=== PATIENT | female | born 2000 ===

== ENCOUNTER 2025-05-17 14:55 | Inpatient (IN) | payer OTHER ==
[2025-05-17] VITALS (23 sets, daily range): BP systolic 82–115; BP diastolic 46–82
[~2025-05-17] VITALS: Ht 162.6 cm; Wt 89.4 kg
[~2025-05-17 14:55] MED LIST: Ketamine HCl 100 MG / ML 5ML Vial IV ONE; Midazolam HCl 1MG / ML 2ML Vial IV ONE; SuccINYLCHOLINE Chloride 100 MG/5 ML 5MLSYR IV ONE
[2025-05-17] MEDS ORDERED: Albuterol 2.5 MG/3 ML VIAL ONE (15:16)
[2025-05-17] MEDS ORDERED: Albuterol 2.5 MG/3 ML VIAL INH SCH (15:20)
[2025-05-17 15:27] LABS: BASOPHILS ABSOLUTE AUTO 0.04 K/mm3 (0.00-0.23); BASOPHILS PERCENT AUTO 0 % (0-2); EOSINOPHILS ABSOLUTE AUTO 0.08 K/mm3 (0.00-0.68); EOSINOPHILS PERCENT AUTO 1 % (0-6); Hematocrit 41.6 % (33.0-51.0); Hemoglobin 13.6 g/dL (11.5-16.0); IMMATURE GRAN ABSOLUTE AUTO 0.09 K/mm3 (0.00-0.10); IMMATURE GRAN PERCENT AUTO 1 % (0-1); LYMPHOCYTES ABSOLUTE AUTO 3.80 K/mm3 (0.84-5.20); LYMPHOCYTES PERCENT AUTO 32 % (21-46); MONOCYTES ABSOLUTE AUTO 0.68 K/mm3 (0.16-1.47); MONOCYTES PERCENT AUTO 6 % (4-13); Mean Corpuscular HGB Conc 32.7 g/dL (31.5-36.5); Mean Corpuscular Volume 95 fL (80-100); NEUTROPHILS ABSOLUTE AUTO 7.16 K/mm3 (1.96-9.15); NEUTROPHILS PERCENT AUTO 60 % (41-73); NRBC ABSOLUTE 0.00 K/mm3 (0.00-0.02); NRBC Auto 0.0 /100 WBC (0.0-0.2); Platelet Count 407 K/mm3 (150-400); RDW Coefficient Variation 13.0 % (11.7-14.2); RDW Standard Deviation 45.0 fL (35.1-46.3)
[2025-05-17] MEDS ORDERED: Piperacillin/Tazobactam Sod 4.5 GM in NS 100 ML IV ONE (15:30)
[2025-05-17] MEDS ORDERED: NS 1,000 ML IV ONE (15:43)
[2025-05-17 15:49] LABS: Source, Urine Foley catheter
[2025-05-17] MEDS ORDERED: Midazolam HCl 1MG / ML 2ML Vial IV ONE (15:50)
[2025-05-17] MEDS ORDERED: Midazolam HCL 50 MG in NS 40 ML IV PRN (15:55)
[2025-05-17 16:00] LABS: pH Blood Arterial 7.26 (7.35-7.45)
[2025-05-17 16:04] LABS: Bilirubin, Urine Neg (Neg); Color, Urine Yellow (P-Yellow); Glucose Qualitative, Urine Neg (Neg); Ketones, Urine Neg (Neg); Leukocyte Esterase, Urine Neg (Neg); Protein, Urine 3+ (Neg); Specific Gravity, Urine 1.010 (1.003-1.022); Urobilinogen, Urine NORM (Normal)
[2025-05-17] MEDS ORDERED: Calcium Gluconate 10% 100 MG/ML INJ IV ONE (16:05)
[2025-05-17] MEDS ORDERED: Insulin Regular 100 Unit/ML 1ML Dose IV ONE (16:05)
[2025-05-17] MEDS ORDERED: Sodium Bicarb 8.4% 50 mEq Syringe IV ONE (16:05)
[2025-05-17 16:09] LABS: Alanine Aminotransfer (ALT/SGP 40.0 U/L (12-78); Albumin, Blood 3.3 g/dL (3.4-5.0); Albumin/Globulin Ratio 0.8 (0.8-1.8); Anion Gap 19.0 mmol/L (3-11); Bilirubin, Total 0.3 mg/dL (0.1-1.0); Blood Urea Nitrogen 4.0 mg/dL (8-24); CO2, Blood 18.0 mmol/L (21-32); Calcium, Blood 9.0 mg/dL (8.5-10.1); Chloride, Blood 102.0 mmol/L (98-108); Creatinine, Blood 0.75 mg/dL (0.40-1.00); Globulin, Blood 4.3 g/dL (2.2-4.0); Glucose, Blood 181.0 mg/dL (70-99); Potassium, Blood 5.7 mmol/L (3.5-5.5); Sodium, Blood 133.0 mmol/L (136-145); Total Protein, Blood 7.6 g/dL (6.4-8.2)
[2025-05-17] MEDS ORDERED: Sodium Bicarb 8.4% 1 MEQ/ML 50 ML Vial IV ONE (16:10)
[2025-05-17 16:19] LABS: U Amphetamine Screen Not Detected
[2025-05-17 16:20] LABS: U Barbituate Screen Not Detected; U Benzodiazapine Screen Not Detected; U Buprenorphine Screen Not Detected; U Cannabinoids Screen Not Detected; U Cocaine Screen Not Detected; U Methadone Screen Not Detected; U Methamphetamine Screen Not Detected; U Opiates Screen Not Detected; U Oxycodone Screen Not Detected; U Phencyclidine Screen Not Detected
[2025-05-17 16:22] LABS: Aspartate Aminotrans (AST/SGOT 68.0 U/L (12-37)
[2025-05-17] MEDS ORDERED: FentaNYL Citrate 50 MCG/ML 2 ML Injection ONE (16:42)
[2025-05-17] MEDS ORDERED: FentaNYL Citrate 50 MCG/ML 2 ML Injection IV PRN (17:15)
[2025-05-17 17:35] LABS: Magnesium, Blood 1.9 mg/dL (1.6-2.4); Phosphorus, Blood 5.7 mg/dL (2.5-4.9)
--- NOTE | 2025-05-17 18:36 | NUR ---
PT ADMITTED TO ICU 13 FROM ER. INTUBATED AND SEDATED WITH PROPOFOL AND VERSED. PT ROUSES EASILY WITH ANY CARE. FOLLOWS COMMANDS AND RESPONDS TO MOMS VOICE THAT IS AT BEDSIDE. VENT SETTINGS AC 18, TV 400, PEEP8, FIO2 50%. OG TUBE TO LIS, PT HAD VOMITTED AT SOME POINT. HAS BILAT 20G IV'S IN SHOULDERS AND I/O IN R SHOULDER. MOM STATES PT HAS AUTISM WITH VERY HIGH LEVEL OF FUNCTIONING, SHE DOES UNDERSTAND MEDICAL SITUATIONS. MOM WILL STAY WITH PT TONIGHT.
[2025-05-17] MEDS ORDERED: FentaNYL Citrate 50 MCG/ML 2 ML Injection IV ONE (19:20)
--- NOTE | 2025-05-17 19:40 | NUR ---
PROCEDURE NOTE: 1920 STARTED BRONCHSCOPY ROCEDURE WITH DR VALDES. 1928 50MG ROCURONIUM ADMINISTERED. 1937 PROCEDURE COMPLETE.
[2025-05-17] MEDS ORDERED: Magnesium Sulf 2 GM/Water 50ML 50 ML IV STA (20:08)
[2025-05-17 20:29] LABS: Anion Gap 8.0 mmol/L (3-11); Blood Urea Nitrogen 7.0 mg/dL (8-24); CO2, Blood 26.0 mmol/L (21-32); Calcium, Blood 8.3 mg/dL (8.5-10.1); Chloride, Blood 108.0 mmol/L (98-108); Creatinine, Blood 0.78 mg/dL (0.40-1.00); Glucose, Blood 118.0 mg/dL (70-99); Potassium, Blood 4.0 mmol/L (3.5-5.5); Sodium, Blood 138.0 mmol/L (136-145)
[2025-05-17] MEDS ORDERED: Rocuronium Bromide 10 MG/ML 5ML Injection IV ONE (21:49)
[2025-05-17 21:52] LABS: Acinetobacter baumannii DNA Not Detected copy/mL (NOT DETECT); Chlamydia pneumonia Not Detected (NOT DETECT); Enterobacter cloacae DNA Not Detected copy/mL (NOT DETECT); Escherichia coli DNA Not Detected copy/mL (NOT DETECT); Haemophilus influenzae DNA Not Detected copy/mL (NOT DETECT); Human Coronavirus RNA Not Detected (NOT DETECT); Human Metapneumovirus RNA Not Detected (NOT DETECT); Influenza virus A RNA Not Detected (NOT DETECT); Influenza virus B RNA Not Detected (NOT DETECT); Klebsiella aerogenes DNA Not Detected copy/mL (NOT DETECT); Klebsiella oxytoca DNA Not Detected copy/mL (NOT DETECT); Klebsiella pneumoniae DNA Not Detected copy/mL (NOT DETECT); Moraxella catarrhalis DNA Not Detected copy/mL (NOT DETECT); Proteus sp DNA Not Detected copy/mL (NOT DETECT); Pseudomonas aeruginosa DNA Not Detected copy/mL (NOT DETECT); Respiratory syncytial Vir RNA Not Detected (NOT DETECT); Rhinovirus+Enterovirus RNA Not Detected (NOT DETECT); Serratia marcescens DNA Not Detected copy/mL (NOT DETECT); Staphylococcus aureus DNA Not Detected copy/mL (NOT DETECT); Streptococcus agalactiae DNA Not Detected copy/mL (NOT DETECT); Streptococcus pneumoniae DNA Not Detected copy/mL (NOT DETECT); Streptococcus pyogenes DNA Not Detected copy/mL (NOT DETECT)
[2025-05-18] VITALS (24 sets, daily range): BP systolic 107–150; BP diastolic 60–104
[2025-05-18] MEDS ORDERED: Piperacillin/Tazobactam Sod 4.5 GM in NS 100 ML IV SCH
[2025-05-18] MEDS ORDERED: Hydrogen Peroxide 1.5 % Solution MT SCH
[2025-05-18 03:35] LABS: BASOPHILS ABSOLUTE AUTO 0.00 K/mm3 (0.00-0.23); BASOPHILS PERCENT AUTO 0 % (0-2); EOSINOPHILS ABSOLUTE AUTO 0.00 K/mm3 (0.00-0.68); EOSINOPHILS PERCENT AUTO 0 % (0-6); Hematocrit 30.7 % (33.0-51.0); Hemoglobin 10.6 g/dL (11.5-16.0); IMMATURE GRAN ABSOLUTE AUTO 0.03 K/mm3 (0.00-0.10); IMMATURE GRAN PERCENT AUTO 0 % (0-1); LYMPHOCYTES ABSOLUTE AUTO 0.64 K/mm3 (0.84-5.20); LYMPHOCYTES PERCENT AUTO 7 % (21-46); MONOCYTES ABSOLUTE AUTO 0.40 K/mm3 (0.16-1.47); MONOCYTES PERCENT AUTO 4 % (4-13); Mean Corpuscular HGB Conc 34.5 g/dL (31.5-36.5); NEUTROPHILS ABSOLUTE AUTO 8.37 K/mm3 (1.96-9.15); NEUTROPHILS PERCENT AUTO 89 % (41-73); NRBC ABSOLUTE 0.00 K/mm3 (0.00-0.02); NRBC Auto 0.0 /100 WBC (0.0-0.2); Platelet Count 290 K/mm3 (150-400); RDW Coefficient Variation 13.1 % (11.7-14.2); RDW Standard Deviation 42.5 fL (35.1-46.3)
[2025-05-18 03:37] LABS: Mean Corpuscular Volume 89 fL (80-100)
[2025-05-18 03:56] LABS: Alanine Aminotransfer (ALT/SGP 35.0 U/L (12-78); Albumin, Blood 2.7 g/dL (3.4-5.0); Albumin/Globulin Ratio 0.8 (0.8-1.8); Anion Gap 8.0 mmol/L (3-11); Aspartate Aminotrans (AST/SGOT 34.0 U/L (12-37); Bilirubin, Total 0.3 mg/dL (0.1-1.0); Blood Urea Nitrogen 7.0 mg/dL (8-24); CO2, Blood 26.0 mmol/L (21-32); Calcium, Blood 8.4 mg/dL (8.5-10.1); Chloride, Blood 106.0 mmol/L (98-108); Creatinine, Blood 0.89 mg/dL (0.40-1.00); Globulin, Blood 3.6 g/dL (2.2-4.0); Glucose, Blood 170.0 mg/dL (70-99); Potassium, Blood 3.8 mmol/L (3.5-5.5); Sodium, Blood 136.0 mmol/L (136-145); Total Protein, Blood 6.3 g/dL (6.4-8.2)
--- NOTE | 2025-05-18 06:07 | NUR ---
SHIFT SUMMARY: PT WAS BRONCHED AT THE BEGINNING OF SHIFT. AFTER PROCEDURE VERSED GTT WAS TITRATED OFF PER KEISHA. PT HAS REQUIRED PRN FENTANYL AND INCREASE IN PROPOFOL THROUGHOUT THE NIGHT. SHE RESPONDS TO DIRECTION AND SHOWS PURPOSEFUL MOVEMENT BUT IS STILL AGITATED PERIODICALLY AND THRASHES ABOUT IN BED. SHE FREQUENTLY MANAGES TO GET HER HAND OUT OF THE RESTRAINT. VAZQUEZ REMAINS IN PLACE AND PATENT. PT IN SINUS RHYTHM AND BP HAS BEEN STABLE. MOTHER STAYED AT BEDSIDE THROUGH THE NIGHT.
[2025-05-18] MEDS ORDERED: Cetylpyridinium Chloride 1 EA MISC MT SCH (08:00)
[2025-05-18] MEDS ORDERED: Enoxaparin 40 MG/0.4 ML SYR SC SCH (09:00)
[2025-05-18] MEDS ORDERED: Pantoprazole Sodium 40 MG Injection IV SCH (09:00)
--- NOTE | 2025-05-18 10:47 | NUR ---
AM NOTE: THIS RN ASSUMED CARE OF PT AT APPROX 0700, BEDSIDE REPORT FROM NOC RN. PT INTUBATED & SEDATED W/ PROPOFOL AT 50MCG/KG/MIN, RASS -1 TO +1. PT REPORTS PAIN, MEDICATED W/ FENTANYL PER EMAR W/ VISIBLE RELIEF. PT ABLE TO NOD/SHAKE HEAD APPROPRIATELY TO ANSWER QUESTIONS. ABLE TO FOLLOW COMMANDS, COMMUNICATE NEEDS BY WRITING ON PAPER. PROPOFOL GTT TITRATED DOWN, SEE FLOWSHEET. SBT INITIATED BY RT. PT EXTUBATED AT APPROX 1020, TRANSITIONED TO FACE TENT W/ COOL MIST. PT W/ STRONG COUGH, ABLE TO SPEAK IN VERY SOFT VOICE. VAZQUEZ CATH REMOVED, PW PLACED TO SUCTION. ABLE TO REPOSITION SELF W/ MINIMAL TO NO ASSISTANCE. HR 90-100'S, SINUS RHYTHM ON MONITOR. 10-BEAT RUN OF VTACH NOTED ON MONITOR AT APPROX 0916, RESIDENT AWARE. BP STABLE, MAP >65. AFEBRILE. PT'S PARENTS AT BEDSIDE AT THIS TIME. PT INDEPENDENTLY BRUSHING HAIR/COMPLETING ADL'S.
[2025-05-18] MEDS ORDERED: Saline Nasal Spray 45 ML PRN (11:00)
[2025-05-18] MEDS ORDERED: Dexamethasone Sodium Phosphate 4 MG/ML 1ML Vial IV SCH (12:00)
[2025-05-18] MEDS ORDERED: PROP60 PO (12:38)
[2025-05-18] MEDS ORDERED: BUPROPION HCL200 M2 PO (12:38)
[2025-05-18] MEDS ORDERED: DULO60 PO (12:39)
[2025-05-18] MEDS ORDERED: YAZ 28 TABLET1 EAC1 PO (12:39)
--- NOTE | 2025-05-18 13:10 | NUR ---
UPDATE: BEDSIDE SWALLOW COMPLETED W/ PT BY THIS RN. PT ABLE TO TOLERATE PUREES & THIN LIQUIDS WELL W/O COUGHING, GAGGING, OR ANY SIGNS OF ASPIRATION. PT INSTRUCTED TO TAKE SMALL SIPS/BITES & TUCK CHIN WHEN SWALLOWING. PT VOICED UNDERSTANDING OF THIS. REGUALR DIET ORDERED FOR PT.
--- NOTE | 2025-05-18 17:25 | NUR ---
END OF SHIFT NOTE: PT IS DOING WELL THIS AFTERNOON FOLLOWING EXTUBATION. SHE HAS REMAINED ON ROOM AIR W/ SPO2 >95%. PARTICIPATING IN FLUTTER THERAPY & INCENTIVE SPIROMETRY. PRODUCTIVE COUGH NOTED. HR 90-110'S, SINUS RHYTHM ON MONITOR. SBP 120-150'S, MAP >65. AFEBRILE. PT ABLE TO AMBULATE W/ LINE MANAGEMENT ONLY TO TOILET. ABLE TO SHOWER INDEPENDENTLY. TOLERATING PO INTAKE WELL, REGULAR DIET IN PLACE. LR INFUSING AT 120ML/HR PER EMAR. PIV TO L SHOULDER. FAMILY AT BEDSIDE T/O SHIFT. PT IS MEDICAL W/ TELEMETRY STATUS AT THIS TIME. CALL LIGHT IN REACH.
[2025-05-19] MEDS ORDERED: NS 250 ML IV PRN (03:25)
[2025-05-19 03:34] VITALS: BP 140/91
[2025-05-19 06:07] LABS: BASOPHILS ABSOLUTE AUTO 0.01 K/mm3 (0.00-0.23); BASOPHILS PERCENT AUTO 0 % (0-2); EOSINOPHILS ABSOLUTE AUTO 0.00 K/mm3 (0.00-0.68); EOSINOPHILS PERCENT AUTO 0 % (0-6); Hematocrit 30.0 % (33.0-51.0); Hemoglobin 10.1 g/dL (11.5-16.0); IMMATURE GRAN ABSOLUTE AUTO 0.05 K/mm3 (0.00-0.10); IMMATURE GRAN PERCENT AUTO 1 % (0-1); LYMPHOCYTES ABSOLUTE AUTO 1.13 K/mm3 (0.84-5.20); LYMPHOCYTES PERCENT AUTO 11 % (21-46); MONOCYTES ABSOLUTE AUTO 0.57 K/mm3 (0.16-1.47); MONOCYTES PERCENT AUTO 6 % (4-13); Mean Corpuscular HGB Conc 33.7 g/dL (31.5-36.5); Mean Corpuscular Volume 93 fL (80-100); NEUTROPHILS ABSOLUTE AUTO 8.12 K/mm3 (1.96-9.15); NEUTROPHILS PERCENT AUTO 82 % (41-73); NRBC ABSOLUTE 0.00 K/mm3 (0.00-0.02); NRBC Auto 0.0 /100 WBC (0.0-0.2); Platelet Count 306 K/mm3 (150-400); RDW Coefficient Variation 13.5 % (11.7-14.2); RDW Standard Deviation 46.2 fL (35.1-46.3)
--- NOTE | 2025-05-19 06:30 | NUR ---
SHIFT SUMMARY: Pt is admitted for acute hypoxic respiratory failure and is a full code. Is alert and able to make needs known. Transferred from ICU to Med floor about 0300. ADLs have been IND. denies pain or discomfort when asked. IV to left should is patent with dressing that is CDI. jessee reported sinus in the 80s right after hooking up the telly box.
[2025-05-19 06:36] LABS: Anion Gap 8.0 mmol/L (3-11); Blood Urea Nitrogen 8.0 mg/dL (8-24); CO2, Blood 27.0 mmol/L (21-32); Calcium, Blood 8.4 mg/dL (8.5-10.1); Chloride, Blood 107.0 mmol/L (98-108); Creatinine, Blood 0.69 mg/dL (0.40-1.00); Glucose, Blood 119.0 mg/dL (70-99); Potassium, Blood 3.8 mmol/L (3.5-5.5); Sodium, Blood 138.0 mmol/L (136-145)
[2025-05-19 07:36] VITALS: BP 145/96
[2025-05-19] MEDS ORDERED: DULoxetine HCL 60 MG Capsule DR PO SCH (09:00)
[2025-05-19] MEDS ORDERED: Misc. Tablet PO SCH (09:00)
[2025-05-19] MEDS ORDERED: BuPROPion HCl SR 100 MG TabCR PO SCH (09:00)
[2025-05-19] MEDS ORDERED: PRED20 PO (11:02)
[2025-05-19] MEDS ORDERED: AMOCLA875 PO (11:02)
--- NOTE | 2025-05-19 13:58 | NUR ---
DISCHARGE SUMMARY PATIENT DISCHARGED HOME WITH DAD TO DRIVE. A/O X4. LUNGS CLEAR, REPORTS FEELING "NORMAL", ABLE TO LIE DOWN IN BED WITHOUT ISSUE. DISCHARGE PACKET GIVEN AND REVIEWED, QUESTIONS ANSWERED, VERBALIZED UNDERSTANDING. IV REMOVED WITHOUT COMPLICATION.
== END 2025-05-19 11:25 | disposition home or self-care (01) | DRG 208 ==
LOC: ER 14:55 → ERHOLD 15:45 → EDBD 15:45 → ICUE 15:45 → MEDS 15:45 → ICUE 17:24 → MEDS 05-19 03:23
PROVIDERS: Emergency Medicine; Student in an Organized Health Care Education/Training Program; ADMIT Internal Medicine
PROC: 5A1935Z Respiratory Ventilation, Less than 24 Consecutive Hours (ICD-10-PCS; principal; 2025-05-17)
PROC: 0BH17EZ Insertion of Endotracheal Airway into Trachea, Via Natural or Artificial Opening (ICD-10-PCS; 2025-05-17)
DX: J69.0 Pneumonitis due to inhalation of food and vomit (principal); J96.01 Acute respiratory failure with hypoxia; N17.9 Acute kidney failure, unspecified; E22.2 Syndrome of inappropriate secretion of antidiuretic hormone; E87.20 Acidosis, unspecified; F41.9 Anxiety disorder, unspecified; E87.5 Hyperkalemia; J45.909 Unspecified asthma, uncomplicated; D64.9 Anemia, unspecified; Z88.8 Allergy status to other drugs, medicaments and biological substances; Z98.890 Other specified postprocedural states
CPT/HCPCS: 0528U; 31500; 31720; 36415; 36600; 51702; 71045; 80048; 80053; 80320; 81001; 81025; 82803; 83605; 83735; 83880; 84100; 84145; 85025; 87086; 93005; 93010; 93306; 94002; 94003; 94644; 94664; 94762; 99285-25; A9270; J0330; J0612; J1100; J1650; J1815; J2250; J2470; J2543; J2704; J2919; J3010; J3475; J7030; J7050; J7120